=== PATIENT | female | born 1980 | race African-American/Black ===

== ENCOUNTER 2022-05-11 12:30 | Emergency (ER) | payer SELFPAY ==
[2022-05-11] MEDS ORDERED: diphenhydrAMINE 50 MG/ML VIAL ONE (13:12)
[2022-05-11] MEDS ORDERED: Ketorolac Tromethamine 30 MG/ML VIAL ONE (13:13)
[2022-05-11] MEDS ORDERED: Metoclopramide HCl 10 MG/2 ML VIAL ONE (13:13)
== END 2022-05-11 16:10 | disposition home or self-care (01) ==
LOC: CSHERS 12:30
DX: R51.9 Headache, unspecified (principal); I10 Essential (primary) hypertension; F17.210 Nicotine dependence, cigarettes, uncomplicated
CPT/HCPCS: 96365; 96375; J1200; J1885; J2765

== ENCOUNTER 2022-11-24 10:21 | Emergency (ER) | payer SELFPAY ==
[2022-11-24 11:08] LABS: Bilirubin Neg (Negative); Blood, Urine 10 (Negative); Clarity Clear (Clear); Glucose, Urine (Dipstick) Normal (Negative); Ketone, Urine Negative (Negative); Leukocyte 25 (Negative); Nitrite Negative (Negative); Protein, Urine (Dipstick) Negative (Neg-Trace); Specific Gravity, Urine 1.015 (1.005-1.030); Urobilinogen Normal mg/dL (Less than 2)
[2022-11-24 11:10] LABS: Pregnancy Test - Urine (BHCG) Negative (Negative); Pregu Control Background? CLEAR/WHITE (CLR/WHITE); Pregu Control Bar Appear? YES (CONTROL BAR); Specific Gravity 1.015 (1.002-1.036)
[2022-11-24 11:17] LABS: Bacteria/HPF 1+ HPF (None Seen); CAUTI Indications for Culture Pelvic or flank pain; Mucous/LPF 1+ LPF (<2+); RBC/HPF 0-3 HPF (0-3); WBC/HPF 0-3 HPF (0-3)
[2022-11-24 11:19] LABS: Urine Culture Reflex No No
[2022-11-24] MEDS ORDERED: Morphine 2 MG/ML VIAL ONE (11:24)
[2022-11-24] MEDS ORDERED: Ondansetron PF 4 MG/2 ML Vial ONE (11:25)
[2022-11-24 11:42] LABS: Mean Corpuscular HGB CONC 32.3 g/dL (32.0-36.0); Mean Corpuscular Hemoglobin 31.5 pg (27.0-33.0); Mean Corpuscular Volume 97.4 fl (81.6-98.3); Mean Platelet Volume 10.2 fl (7.4-10.4); Platelet Count 389 10x3/uL (150-450); RBC Distribution Width 15.7 % (11.5-14.5); Red Blood Cell (RBC) Count 3.81 10x6/uL (3.90-5.03); White Blood Cell (WBC) Count 4.7 10x3/uL (3.5-10.5)
[2022-11-24 11:56] LABS: ALT (SGPT) 14 U/L (8-55); AST (SGOT) 16 U/L (5-34); Albumin 3.9 g/dL (3.5-5.0); Alkaline Phosphatase 102 U/L (40-110); Anion Gap 14 mmol/L (10-20); BUN (Urea Nitrogen) 10 mg/dL (7.0-18.7); Bilirubin, Total 0.3 mg/dL (0.2-1.2); Calc. Creatinine Clearance 0 mL/min (70-130); Carbon Dioxide 19 mmol/L (22-29); Chloride 109 mmol/L (98-107); Estimated GFR 88; Globulin 3.5 g/dL (2.4-3.5); Glucose 89 mg/dL (70-105); Lipase 20 U/L (8-78); Potassium 3.6 mmol/L (3.5-5.1); Protein, Total 7.4 g/dL (6.0-8.3); Sodium 138 mmol/L (136-145)
[2022-11-24 12:38] LABS: Eosinophils 4 % (0-10); Lymphocytes 52 % (21-51); Monocytes 10 % (0-10); Reactive Lymphocytes 6 % (0-10)
[2022-11-24 12:41] LABS: Neutrophil 28 % (42-75)
[2022-11-24 12:43] LABS: MDiff Complete? YES; Platelet Adequacy Comment Appears Adequate; RBC Morph Comment Within Normal Limits
[2022-11-25 20:33] LABS: Chlamydia by PCR, Vaginal Swab Not Detected (NotDetected); GC by PCR, Vaginal Swab Not Detected (NotDetected); Tric.vaginalis PCR,Vaginal Sw Not Detected (NotDetected)
== END 2022-11-24 14:00 | disposition home or self-care (01) ==
LOC: CSHERS 10:21
DX: N20.0 Calculus of kidney (principal); I10 Essential (primary) hypertension; F17.210 Nicotine dependence, cigarettes, uncomplicated
CPT/HCPCS: 36415; 74176; 80053; 81001; 81025; 83690; 85025; 87480; 87491; 87510; 87591; 87660; 87661; 96374; 96375; J2272; J2405

== ENCOUNTER 2022-11-24 21:19 | Emergency (ER) | payer BC, SELFPAY | END 2022-11-24 23:28 | disposition home or self-care (01) | LOC: CSHERS 21:19 | DX: R22.32 Localized swelling, mass and lump, left upper limb (principal); I10 Essential (primary) hypertension; F17.210 Nicotine dependence, cigarettes, uncomplicated ==

== ENCOUNTER 2023-02-03 05:54 | Emergency (ER) | payer BC, SELFPAY | END 2023-02-03 06:20 | disposition home or self-care (01) | LOC: CSHERS 05:54 | DX: J06.9 Acute upper respiratory infection, unspecified (principal); I10 Essential (primary) hypertension; F17.210 Nicotine dependence, cigarettes, uncomplicated | CPT/HCPCS: 99283 ==

== ENCOUNTER 2023-02-21 08:38 | Emergency (ER) | payer SELFPAY ==
[2023-02-21] MEDS ORDERED: Benzonatate 100 MG CAP ONE (09:21)
== END 2023-02-21 09:28 | disposition home or self-care (01) ==
LOC: CSHERS 08:38
DX: J06.9 Acute upper respiratory infection, unspecified (principal); I10 Essential (primary) hypertension; F17.210 Nicotine dependence, cigarettes, uncomplicated
CPT/HCPCS: 99283

== ENCOUNTER 2023-12-18 13:09 | Emergency (ER) | payer SELFPAY ==
[2023-12-18 14:31] LABS: Bilirubin Neg (Negative); Blood, Urine 150 (Negative); Clarity Slightly Cloudy (Clear); Glucose, Urine (Dipstick) Normal (Negative); Ketone, Urine Negative (Negative); Leukocyte 25 (Negative); Nitrite Negative (Negative); Protein, Urine (Dipstick) 15 mg/dl (Neg-Trace); Urobilinogen Normal mg/dL (Less than 2)
[2023-12-18 14:52] LABS: Bacteria/HPF 2+ HPF (None Seen); CAUTI Indications for Culture Pelvic or flank pain; Mucous/LPF 2+ LPF (<2+)
[2023-12-18 14:53] LABS: Urine Culture Reflex No No
[2023-12-18 15:01] LABS: BHCG - Serum Negative (NEGATIVE); Pregs Control Background? CLEAR/WHITE (CLR/WHITE); Pregs Control Bar Appear? YES (CONTROL BAR)
[2023-12-18 15:03] LABS: #Basophils 0.01 10x3/uL (0.0-0.2); #Eosinphils 0.09 10x3/uL (0.0-0.5); #Monocytes 0.45 10x3/uL (0.0-1.1); #Neutrophils 2.48 10x3/uL (1.5-8.4); %Basophils 0.2 % (0.0-2.0); %Eosinophils 1.6 % (0.0-6.0); %Lymphocytes 44.3 % (18.0-47.0); %Monocytes 8.2 % (0.0-10.0); %Neutrophils 45.5 % (40.0-75.0); Hematocrit 34.7 % (34.9-44.5); Hemoglobin 11.9 g/dL (12.0-15.5); Mean Corpuscular HGB CONC 34.3 g/dL (32.0-36.0); Mean Corpuscular Hemoglobin 33.4 pg (27.0-33.0); Mean Corpuscular Volume 97.5 fL (81.6-98.3); Mean Platelet Volume 10.2 fL (7.4-10.4); Platelet Count 422 10x3/uL (150-450); RBC Distribution Width 15.9 % (11.5-14.5); Red Blood Cell (RBC) Count 3.56 10x6/uL (3.90-5.03); White Blood Cell (WBC) Count 5.5 10x3/uL (3.5-10.5)
[2023-12-18 15:06] LABS: Anion Gap 14 mmol/L (10-20); BUN (Urea Nitrogen) 13 mg/dL (7.0-18.7); Calc. Creatinine Clearance 0 mL/min (70-130); Calcium 9.1 mg/dL (7.8-10.44); Carbon Dioxide 23 mmol/L (22-29); Chloride 105 mmol/L (98-107); Estimated GFR 97; Glucose 87 mg/dL (70-105); Potassium 3.5 mmol/L (3.5-5.1); Sodium 138 mmol/L (136-145)
[2023-12-18 15:14] LABS: Troponin I Less than 0.010 ng/mL (< 0.028)
[2023-12-18 15:16] LABS: ALT (SGPT) 9 U/L (8-55); AST (SGOT) 14 U/L (5-34); Albumin 3.1 g/dL (3.5-5.0); Alkaline Phosphatase 95 U/L (40-110); Bilirubin, Direct 0.1 mg/dL (0.1-0.3); Bilirubin, Total 0.3 mg/dL (0.2-1.2); Lipase 17 U/L (8-78); Protein, Total 6.1 g/dL (6.0-8.3)
[2023-12-18] MEDS ORDERED: Morphine 4 MG/ML VIAL ONE (16:11)
[2023-12-18] MEDS ORDERED: cefTRIAXone (ROCEPHIN) 500 MG VIAL ONE (17:27)
[2023-12-18] MEDS ORDERED: Ketorolac Tromethamine 30 MG (1 mL) VIAL ONE (17:27)
[2023-12-18] MEDS ORDERED: Sterile Water 10 ML ONE (17:28)
== END 2023-12-18 18:00 | disposition home or self-care (01) ==
LOC: CSHERS 13:09
DX: D25.9 Leiomyoma of uterus, unspecified (principal); N39.0 Urinary tract infection, site not specified; I10 Essential (primary) hypertension; F17.210 Nicotine dependence, cigarettes, uncomplicated
CPT/HCPCS: 36415; 74176; 80048; 80076; 81001; 83690; 84484; 84703; 85025; 86140; 93005; 96372; J0696; J1885; J2272

== ENCOUNTER 2024-03-06 07:13 | Emergency (ER) | payer SELFPAY | END 2024-03-06 07:34 | disposition home or self-care (01) | LOC: CSHERS 07:13 | DX: J06.9 Acute upper respiratory infection, unspecified (principal); I10 Essential (primary) hypertension; J45.909 Unspecified asthma, uncomplicated; F17.210 Nicotine dependence, cigarettes, uncomplicated | CPT/HCPCS: 99283 ==

== ENCOUNTER 2024-12-27 13:46 | Emergency (ER) | payer OTHER ==
[2024-12-27] MEDS ORDERED: Bacitracin 1 PK ONE (15:06)
== END 2024-12-27 16:17 | disposition home or self-care (01) ==
LOC: CSHERS 13:46
DX: S61.311A Laceration without foreign body of left index finger with damage to nail, initial encounter (principal); I10 Essential (primary) hypertension; F17.210 Nicotine dependence, cigarettes, uncomplicated; W23.0XXA Caught, crushed, jammed, or pinched between moving objects, initial encounter
CPT/HCPCS: 11730; 99283; J0665

== ENCOUNTER 2025-01-23 17:18 | Emergency (ER) | payer OTHER ==
[2025-01-23] MEDS ORDERED: Ketorolac Tromethamine 30 MG (1 mL) VIAL ONE (17:57)
[2025-01-23] MEDS ORDERED: Cyclobenzaprine 10 MG TAB ONE (17:58)
[2025-01-23 18:58] LABS: ALT (SGPT) 14 U/L (Less than 34); AST (SGOT) 19 U/L (11-34); Albumin 4.0 g/dL (3.1-4.5); Alkaline Phosphatase 109 U/L (40-110); Anion Gap 13 mmol/L (10-20); BUN (Urea Nitrogen) 10 mg/dL (7.0-18.7); Bilirubin, Total 0.3 mg/dL (0.3-1.2); Calc. Creatinine Clearance 0 mL/min (70-130); Calcium 9.2 mg/dL (7.8-10.44); Carbon Dioxide 25 mmol/L (22-29); Chloride 106 mmol/L (98-107); Globulin 3.6 g/dL (2.4-3.5); Glucose 86 mg/dL (70-105); Lipase 14 U/L (8-78); Potassium 3.7 mmol/L (3.5-5.1); Sodium 140 mmol/L (136-145)
[2025-01-23 19:00] LABS: Troponin I Less than 0.010 ng/mL (< 0.028)
[2025-01-23 19:01] LABS: #Basophils Less than 0.03 10x3/uL (0.0-0.2); #Eosinophils 0.04 10x3/uL (0.0-0.5); #Monocytes 0.55 10x3/uL (0.0-1.1); #Neutrophils 4.70 10x3/uL (1.5-8.4); %Basophils 0.1 % (0.0-2.0); %Eosinophils 0.5 % (0.0-6.0); %Lymphocytes 33.2 % (18.0-47.0); %Monocytes 6.9 % (0.0-10.0); %Neutrophils 59.2 % (40.0-75.0); Hematocrit 37.6 % (34.9-44.5); Hemoglobin 12.1 g/dL (12.0-15.5); Mean Corpuscular Hemoglobin 31.3 pg (27.0-33.0); Mean Corpuscular Volume 97.2 fL (81.6-98.3); Platelet Count 402 10x3/uL (150-450); Red Blood Cell (RBC) Count 3.87 10x6/uL (3.90-5.03); White Blood Cell (WBC) Count 7.95 10x3/uL (3.5-10.5)
== END 2025-01-23 19:15 | disposition home or self-care (01) ==
LOC: CSHERS 17:18
DX: R07.9 Chest pain, unspecified (principal); M25.512 Pain in left shoulder; I10 Essential (primary) hypertension; F17.210 Nicotine dependence, cigarettes, uncomplicated
CPT/HCPCS: 36415; 71045; 80053; 83690; 84484; 85025; 93005; 96372; J1885